=== PATIENT | male | born 1970 | race Hispanic/Latino ===

== ENCOUNTER → 2019-04-08 | Outpatient (CLI) | payer OTHER ==
--- NOTE | 2019-04-08 15:36 | Diagnostic Imaging Report ---
EXAMINATION: WRIST COMPLETE LEFT INDICATION: Trauma COMPARISON: None FINDINGS: No acute fracture or dislocation. Alignment appears anatomic. Numerous small radiopaque structures overlie the thenar soft tissues. Associated soft tissue swelling in this area and along the dorsal aspect of the wrist. IMPRESSION: Swelling of the the thenar soft tissues and dorsal wrist without underlying acute osseous injury. Numerous radiopaque foci in the dorsal hand and wrist soft tissues consistent with foreign bodies. Signed by: Katherine Gallo MD on 04/08/2019 3:34 PM
== END ==
LOC: RAD 15:08
PROVIDERS: ATTEND Family Medicine
DX: M25.532 Pain in left wrist (principal)

== ENCOUNTER → 2021-06-07 | Outpatient (CLI) | payer OTHER | LOC: RAD 12:43 | PROVIDERS: ATTEND Family Medicine | DX: S61.442A Puncture wound with foreign body of left hand, initial encounter (principal); L08.9 Local infection of the skin and subcutaneous tissue, unspecified ==